=== PATIENT | male | born 1985 | race Caucasian/White ===

== ENCOUNTER 2021-02-18 02:04 | Emergency (ER) | payer SELFPAY ==
[~2021-02-18] VITALS: Ht 182.9 cm; Wt 66.0 kg
[2021-02-18 02:11] VITALS: BP 156/117
[2021-02-18] MEDS ORDERED: LIDOCAINE HCL/PF 1% 10 MG/ML 5ML VIAL INFIL ONE (02:30)
[2021-02-18] MEDS ORDERED: TOPUD PO (04:03)
[2021-02-18] MEDS ORDERED: ACETAMINOPHEN 325MG TABLET PO ONE (04:15)
== END 2021-02-18 05:00 | disposition home or self-care (01) ==
LOC: ER 02:04
DX: S61.012A Laceration without foreign body of left thumb without damage to nail, initial encounter (principal); I10 Essential (primary) hypertension; W26.8XXA Contact with other sharp object(s), not elsewhere classified, initial encounter; Y93.89 Activity, other specified; Y92.89 Other specified places as the place of occurrence of the external cause; Y99.8 Other external cause status; Z88.0 Allergy status to penicillin
CPT/HCPCS: 12002; 73130; 99283; J3490